=== PATIENT | male | born 2000 | race Caucasian/White ===

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

== ENCOUNTER 2023-01-03 10:43 | Outpatient (CLI) | payer BC, MEDICAID, SELFPAY ==
--- NOTE | 2023-01-03 10:57 | XR_ITS ---
WS: [id number] Cervical spine, 3 views, 01/03/2023 Clinical Data: M54.2 - Cervicalgia Comparison: None. Findings: No compression fractures are seen. The disc heights are normal. There is no prevertebral so ft tissue swelling. The odontoid is unremarkable. The soft tissues of the neck and the lung apices ar e normal. XR/XR cervical spine 3V* 11386 Impression: Negative cervical spine.
--- NOTE | 2023-01-03 10:57 | XR_ITS ---
WS: [id number] Left foot, AP and lateral views, 01/03/2023 Clinical Data: M20.62 - Acquired deformities of toe(s), unspecified, left... Comparison: None. Findings: No fractures or dislocations are seen. No bone destruction or erosion is noted. The joint spaces and soft tissues are normal. XR/XR foot LT 2V [id number] Impression: Negative left foot.
[2023-01-03 11:47] LABS: Basophils # 0.1 10^3/uL (0.0-0.1); Basophils % 0.9 %; Eosinophils # 0.5 10^3/uL (0.0-0.8); Eosinophils % 8.1 %; Hematocrit 47.6 % (42.0-52.0); Hemoglobin 16.5 g/dL (11.7-16.6); Lymphocytes # 1.5 10^3/uL (1.5-6.5); Lymphocytes % 21.8 %; Mean Corpuscular HGB Conc 34.7 g/dL (30.0-36.0); Mean Corpuscular Hemoglobin 30.2 pg (28.0-34.0); Mean Corpuscular Volume 87.2 fl (80-94); Mean Platelet Volume 8.9 fL (7.4-10.4); Monocytes # 0.7 10^3/uL (0.2-0.9); Monocytes % 10.1 %; Neutrophils % 58.8 %; Nucleated Red Blood Cells % 0 %; Platelet Count 233 10^3/cmm (130-400); Red Blood Count 5.46 10^6/uL (4.1-5.3); Red Cell Distribution Width 11.9 % (12.1-15.1); White Blood Count 6.6 10^3/uL (4.5-13.0)
[2023-01-03 11:59] LABS: Erythrocyte Sedimentation Rate 1 mm/hr (0-10)
[2023-01-03 12:17] LABS: Alanine Aminotransferase 14 U/L (0-41); Albumin Level 4.6 g/dL (3.5-5.2); Alkaline Phosphatase 70 U/L (40-130); Anion Gap 14.3 (5-19); Aspartate Amino Transferase 17 U/L (0-40); Blood Urea Nitrogen 11 mg/dL (6-20); Calcium 9.8 mg/dL (8.5-10.5); Carbon Dioxide 28 mmol/L (22-29); Chloride 101 mmol/L (98-107); Chol HDL Ratio 2.95 mg/dL (1.0-5.00); Cholesterol 171 mg/dL (0-200); Free T4 Free Thyroxine 1.31 ng/dL (0.82-1.77); Globulin 2.7 g/dL (1.3-4.6); Glomerular Filtration Rate 107.6 mL/min (90-130); Glucose 63 mg/dL (65-115); HDL Cholesterol 58 mg/dL (60-100); LDL Cholesterol Calculated 103 mg/dL (50-129); LDL HDL Ratio 1.78 RATIO (0.00-3.22); Osmolality Calculated 285 mOsm/kg (285-295); Potassium 4.3 mmol/L (3.5-5.1); Sodium 139 mmol/L (136-145); Testosterone Total 504.7 ng/dL (3-685); Thyroid Stimulating Hormone 0.57 uIU/mL (0.27-4.20); Total Bilirubin 0.4 mg/dL (0.15-1.2); Total Protein 7.3 g/dL (6.6-8.7); Triglycerides 50 mg/dL (0-150)
[2023-01-03 12:55] LABS: 25 Hydroxy Vitamin D 48 ng/mL (30-100)
== END 2023-01-03 10:44 | disposition home or self-care (01) ==
PROVIDERS: PCP Nurse Practitioner; Visit Provider Nurse Practitioner
DX: Z00.00 Encounter for general adult medical examination without abnormal findings (principal); M20.62 Acquired deformities of toe(s), unspecified, left foot; M54.2 Cervicalgia; R25.2 Cramp and spasm; R53.83 Other fatigue
CPT/HCPCS: 72040; 73620; 80053; 80061; 82306; 84403; 84439; 84443; 85025; 85651; 86140

== ENCOUNTER → 2025-01-31 15:32 | Outpatient (BNVA) | payer BC, SELFPAY | PROVIDERS: PCP Nurse Practitioner; Visit Provider Family Medicine | DX: A64 Unspecified sexually transmitted disease (principal) | CPT/HCPCS: 81000 ==

== ENCOUNTER 2025-02-19 21:21 | Emergency (ER) | payer BC, SELFPAY ==
--- OUTSIDE RECORDS SUMMARY | 2025-02-19 21:28 | XMS_ITS | Clinical Summary ---
Author Organization [facility] Address [address] [place] [address] Care Team Providers Care Retail Marketing Specialist Name Role Phone Unavailable Primary Care Provider Unavailabl e Allergies No known active allergies Medications No known medications Active Problems No known active problems Family History Medical History Relation Name Comments Osteoporosis Neg Hx Social History Tobacco Use Types Packs/Day Years Used Date Smoking Tobacco: Never Smokeless Tobacco: Never Sex and Gender Information Value Date Recorded Sex Assigned at Not on file Legal Sex Male 1:32 PM CDT Gender Identity Not on file Sexual Orientation Not on file Last Filed Vital Signs Vital Sign Reading Time Taken Comments Blood Pressure 125/80 03/28/2020 3:28 PM CDT Pulse 81 03/28/2020 3:28 PM CDT Temperature - - Respiratory Rate - - Oxygen Saturation - - Inhaled Oxygen Concentration - - Weight 74.8 kg (165 lb) 03/28/2020 3:28 PM CDT Height 179.1 cm (5' 10.5 ) 03/28/2020 3:28 PM CD T Body Mass Index 23.34 03/28/2020 3:28 PM CDT Plan of Treatment Health Maintenance Due Date Last Done Comments HPV VACCINES (1 - Male 3-dose series) 2017 DTAP/TDAP/TD VACCINES (1 - Tdap) 2021 HEPATITIS B VACCINES (1 of 3 - 19+ 3-dose series) 08/21 INFLUENZA VACCINE (#1) 2025 Insurance BCBS Member Subscriber Plan / Payer (Ef fective 2018-Present) Name:Mike Mayorga Relation to Subscriber:Child Name:GIOVANNI EDMONDS Date of :1975 (Home) Address: [address] [place] [id number] Payer ID:Not on file Type:[employer] Address: [address] [facility] [facility]
--- OUTSIDE RECORDS SUMMARY | 2025-02-19 21:28 | XMS_ITS | Clinical Summary ---
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
[2025-02-19 21:36] VITALS: BP 137/78; PULSE 100; RESP 16; TEMP 36.7; O2SAT 100; BMI 25.8
--- NOTE | 2025-02-19 23:12 | CTR_ITS ---
PROCEDURE INFORMATION: Exam: CT Head Without Contrast Exam date and time: 02/19/2025 11:38 PM Age: 24 years old Clinical indication: C/O sudden onset of lue paresthesia. No injury. TECHNIQUE: Imaging protocol: Computed tomography of the head without contrast. Radiation optimization: All CT scans at this facility use at least one of these dose optimization techniques: automated exposure control; mA and/or kV adjustment per patient size (includes targeted exams where dose is matched to clinical indication); or iterative reconstruction. COMPARISON: CT head wo con* [id number] 03/04/2018 12:06 PM RADIATION DOSE METRICS: Total DLP (mGy-cm): 1000.58 FINDINGS: Brain: Normal. No hemorrhage. Unremarkable white matter. No mass effect. Cerebral ventricles: No ventriculomegaly. Paranasal sinuses: Visualized sinuses are unremarkable. No fluid levels. Mastoid air cells: Visualized mastoid air cells are well aerated. Bones: Unremarkable. No acute fracture. Soft tissues: Unremarkable. CT/CT head wo con* [id number] IMPRESSION: No acute intracranial hemorrhage.
--- NOTE | 2025-02-19 23:12 | CTR_ITS ---
PROCEDURE INFORMATION: Exam: CT Cervical Spine Without Contrast Exam date and time: 02/19/2025 11:39 PM Age: 24 years old Clinical indication: Numbness; C/O sudden onset of lue paresthesia. No injury. TECHNIQUE: Imaging protocol: Computed tomography of the cervical spine without contrast. Radiation optimization: All CT scans at this facility use at least one of these dose optimization techniques: automated exposure control; mA and/or kV adjustment per patient size (includes targeted exams where dose is matched to clinical indication); or iterative reconstruction. COMPARISON: CR XR cervical spine 3V* [id number] 01/03/2023 11:05 AM RADIATION DOSE METRICS: Total DLP (mGy-cm): 335.57 FINDINGS: Bones: No acute fracture. Normal alignment. No significant disc bulge or herniation. No severe spinal canal stenosis. No significant neural foraminal narrowing. Lungs: Lung apices are normal. Soft tissues: Unremarkable. CT/CT cervical spin wo con* [id number] IMPRESSION: No acute cervical spine fracture.
--- NOTE | 2025-02-19 23:13 | ECG_ITS ---
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 Measurements Intervals [place] Rate: 77 P: 60 OR: 136 QRS: 102 QRSD: 114 T: 66 QT: 372 QTc: 423 Interpretive Statements SINUS RHYTHM MODERATE INTRAVENTRICULAR CONDUCTION DELAY [110+ ms QRS DURATION] ST ELEVATION, PROBABLY EARLY REPOLARIZATION [ST ELEVATION WITH NORMALLY INFLECTED T-WAVE] Compared to ECG 02/16/2020 19:28:15 Sinus arrhythmia no longer present Electronically Signed On 02-20-2025 22:08:20 CDT by Julián Woodard M.D. [email or web address]
[2025-02-20 00:05] LABS: Hematocrit 47.1 % (37-53); Hemoglobin 16.40 g/dL (11.27-16.99); Mean Corpuscular HGB Conc 34.8 g/dL (30-55); Mean Corpuscular Hemoglobin 30.4 pg (27-33); Mean Corpuscular Volume 87.4 fl (82-101); Nucleated Red Blood Cells % 0 %; Platelet Count 269 10^3/cmm (157-399); Red Blood Count 5.39 10^6/uL (3.85-5.65); White Blood Count 10.95 10^3/uL (3.29-11.43)
[2025-02-20 00:07] LABS: INR 0.87 (0.8-1.2); Prothrombin Time 12.50 SECONDS (12.1-14.9)
[2025-02-20 00:09] LABS: Partial Thromboplastin Time 26.3 SECONDS (23.9-36.7)
[2025-02-20 00:16] LABS: Alanine Aminotransferase 17 U/L (0-41); Albumin Level 4.1 g/dL (3.5-5.2); Alkaline Phosphatase 70 U/L (40-130); Anion Gap 15.6 (5-19); Aspartate Amino Transferase 18 U/L (0-40); Blood Urea Nitrogen 10 mg/dL (6-20); Calcium 9.4 mg/dL (8.5-10.5); Carbon Dioxide 23 mmol/L (22-29); Chloride 102 mmol/L (98-107); Creatinine Clr Calc Pharmacy 125.3075; Globulin 2.9 g/dL (1.3-4.6); Glucose 96 mg/dL (65-115); Osmolality Calculated 283 mOsm/kg (285-295); Potassium 3.6 mmol/L (3.5-5.1); Sodium 137 mmol/L (136-145); Total Protein 7.0 g/dL (6.6-8.7)
--- NOTE | 2025-02-20 01:17 | W.ED.EXTPRO ---
HPI - Extremity Problem General: Chief complaint: Extremity Problem,Nontraumatic Stated complaint: Left Hand Tingeling\Dizzy Time Seen by Provider: 02/19/25 23:12 History of Present Illness: Patient is a 24-year-old male who presents with left hand numbness and tingling that began a couple of hours prior to arrival. He reports the numbness primarily affects his palm with sensations that travel around. The symptoms have been intermittent, with the numbness and tingling occasionally extending up his arm before subsiding and then returning to his hand. Patient denies any associated pain, trauma, or injury to the affected hand. [place] but denies any specific injury or overuse of the hand. He denies hanging his hand over the boat or falling asleep on it. Patient reports some subjective weakness in the left hand initially, though this appears to have improved. He denies any headache, vision changes, difficulty with speech, or leg symptoms. Patient states he became nervous when the symptoms began. No prior similar episodes reported. Related Data Home Medications ?Medication ?Instructions ?Recorded ?Confirmed testosterone enanthate 100 mg/0.5 300 mg SUBCUT .3xw 04/03/24 01/31/25 mL subcutaneous auto-injector Previous Rx's ?Medication ?Instructions ?Recorded nystatin-triamcinolone 100,000 1 applic topical QID #30 grams 01/31/25 unit/g-0.1 % topical cream methylprednisolone 4 mg tablets in See Rx Instructions PO .COMPLEX 02/20/25 a dose pack (Medrol (Emmanuel)) #21 ea Allergies Allergy/AdvReac Type Severity Reaction Status Date / Time No Known Allergies Allergy Verified 01/31/25 15:22 [facility] ED PFSH: Social History Smoking and tobacco/nicotine status: never used tobacco/nicotine Alcohol intake: never Substance/Drug Use: never Adopted: No Physical Exam Const: COMMON NORMALS: no acute distress, patient oriented x3 and alert GENERAL APPEARANCE: cooperative; not ill appearing and not frail appearing HENMT: COMMON NORMALS: normocephalic, atraumatic and Normal external nose present HEAD & SCALP: normocephalic and atraumatic FACE & SINUS: normal facial exam and face symmetric NOSE: Normal external nose present Eye: COMMON NORMALS: Equal, round and reactive pupils present and EOMs intact bilaterally PUPIL: Yes Equal, round and reactive pupils present Neck/C-Spine: COMMON NORMALS: full ROM and no meningeal signs GENERAL: Yes trachea midline CERVICAL SPINE: No Cervical spine tenderness Chest: CHEST: Yes Symmetrical chest wall rise Resp: COMMON NORMALS: normal respiratory effort, No retractions, No use of accessory muscles and clear to auscultation bilaterally AUSCULTATION: clear to auscultation bilaterally Cardio: COMMON NORMALS: regular rate and regular rhythm RATE: regular rate RHYTHM: regular rhythm GI: COMMON NORMALS: Normal to inspection, nondistended, normoactive bowel sounds present Extremity: COMMON NORMALS: no pedal edema Neuro: CYNDI COMA SCALE: document GCS findings [place] coma scale eye opening: Spontaneous [place] coma scale verbal response: Orientated [place] coma scale motor response: Obey commands [place] coma scale total score: 15 COMMON NORMALS: patient oriented x3 SENSORIUM/ORIENTATION: Yes alert MENINGEAL SIGNS: Yes no meningeal signs CRANIAL NERVES: Yes CN normal except as noted COORDINATION/BALANCE: ncqdtb-so-[id number] test normal and ktrm-xi-[id number] test normal SPEECH: speech normal GAIT: Yes Normal gait present SENSORY EXAM: Yes extremities (intact) MOTOR EXAM: Pronator motor function not present and Normal motor muscle tone present throughout COORDINATION: ciactv-qo-ayfa test normal and pnxz-tn-ggem test normal Psych: COMMON NORMALS: speech normal SPEECH: Yes normal speech Skin: COMMON NORMALS: no rashes or lesions noted GENERAL SKIN EXAM: no rashes or lesions noted Course Vital Signs: Vital signs: Vital Signs Temperature 98.1 F 02/19/25 21:36 Pulse Rate 100 02/19/25 21:36 Respiratory Rate 16 02/19/25 21:36 Blood Pressure 137/78 02/19/25 21:36 Pulse Oximetry 100 02/19/25 21:36 Oxygen Delivery Me thod Room Air 02/19/25 21:36 MDM - Extremity (Nontraumatic) Medical Decision Making Head and cervical spine CTs are negative. No significant disc bulges. No neck tenderness. Laboratories normal. He does have a positive modified Phalen's test on that side indicative of carpal tunnel type syndrome. He is given IM steroids and thiamine here. He will be placed on a steroid taper, and allowed to follow-up as an outpatient. He shows no clinical signs of left upper extremity DVT, acute stroke otherwise, significant cervical radiculopathy, arterial occlusion, which are all in the differential. Lab Data 02/19/25 23:40 02/19/25 23:40 Radiology Impressions Cervical Spine CT 02/19/25 23:12 IMPRESSION: No acute cervical spine fracture. Head CT 02/19/25 23:12 IMPRESSION: No acute intracranial hemorrhage. Laboratory Results WBC 10.95 10^3/uL (3.29-11.43) 02/19/25 23:40 RBC 5.39 10^6/uL (3.85-5.65) 02/19/25 23:40 Hgb 16.40 g/dL (11.27-16.99) 02/19/25 23:40 Hct 47.1 % (37-53) 02/19/25 23:40 MCV 87.4 fl (82-101) 02/19/25 23:40 MCH 30.4 pg (27-33) 02/19/25 23:40 MCHC 34.8 g/dL (30-55) 02/19/25 23:40 RDW 12.5 % (12.1-15.1) 02/19/25 23:40 Plt Count 269 10^3/cmm (157-399) 02/19/25 23:40 MPV 8.9 fL (7.4-10.4) 02/19/25 23:40 Neut % (Auto) 74.3 % 02/19/25 23:40 Lymph % (Auto) 13.5 % 02/19/25 23:40 [place] % (Auto) 8.4 % 02/19/25 23:40 Eos % (Auto) 2.7 % 02/19/25 23:40 Baso % (Auto) 0.6 % 02/19/25 23:40 Neut # (Auto) 8.13 10^3/uL (1.8-7.7) H 02/19/25 23:40 Lymph # (Auto) 1.5 10^3/uL (0.8-4.8) 02/19/25 23:40 [place] # (Auto) 0.9 10^3/uL (0.2-0.9) 02/19/25 23:40 Eos # (Auto) 0.3 10^3/uL (0.0-0.8) 02/19/25 23:40 Baso # (Auto) 0.1 10^3/uL (0.0-0.1) 02/19/25 23:40 Nucleated RBC % (auto) 0 % 02/19/25 23:40 Nucleated RBCs # 0.0 /100WBC 02/19/25 23:40 PT 12.50 SECONDS (12.1-14.9) 02/19/25 23:40 INR 0.87 (0.8-1.2) 02/19/25 23:40 APTT 26.3 SECONDS (23.9-36.7) 02/19/25 23:40 Sodium 137 mmol/L (136-145) 02/19/25 23:40 Potassium 3.6 mmol/L (3.5-5.1) 02/19/25 23:40 Chloride 102 mmol/L (98-107) 02/19/25 23:40 Carbon Dioxide 23 mmol/L (22-29) 02/19/25 23:40 Anion Gap 15.6 (5-19) 02/19/25 23:40 BUN 10 mg/dL (6-20) 02/19/25 23:40 Creatinine 1.0 mg/dL (0.7-1.2) 02/19/25 23:40 GFR Calculation 93.4 mL/min (90-130) 02/19/25 23:40 Glucose 96 mg/dL (65-115) 02/19/25 23:40 Calculated Osmolality 283 mOsm/kg (285-295) L 02/19/25 23:40 Calcium 9.4 mg/dL (8.5-10.5) 02/19/25 23:40 Total Bilirubin 0.4 mg/dL (0.15-1.2) 02/19/25 23:40 AST 18 U/L (0-40) 02/19/25 23:40 ALT 17 U/L (0-41) 02/19/25 23:40 Alkaline Phosphatase 70 U/L (40-130) 02/19/25 23:40 Total Protein 7.0 g/dL (6.6-8.7) 02/19/25 23:40 Albumin 4.1 g/dL (3.5-5.2) 02/19/25 23:40 Globulin 2.9 g/dL (1.3-4.6) 02/19/25 23:40 All radiology interpretation(s) finalized by discharge Discharge Plan Discharge Patient Disposition: Home Clinical Impression: Paresthesias in right hand Condition: Stable Prescriptions: New methylprednisolone [Medrol (Emmanuel)] 4 mg tablets,dose pack See Rx Instructions .ROUTE .COMPLEX Qty: 21 0RF Rx Instructions: orally per package directions No Action testosterone enanthate 100 mg/0.5 mL auto-injector 300 mg SUBCUT .3xw Patient Comments: friday, friday, friday nystatin-triamcinolone 100,000-0.1 unit/g-% cream 1 applic topical QID Qty: 30 0RF Discharge Orders: Discharge ED (Routine); Ordered 02/20/25 Ordered By: Altaf Barreto Patient Instructions: Paresthesia (ED), Opioid Safety, Pain Management, Patient Portal & Tom Instructions Activity Restrictions/Additional Instructions: Medication as directed. Ice may help initially. Return for worsening numbness or tingling despite treatment, development of weakness, particularly in other parts of the body, trouble with speech, vision, fever, walking, any other concerning symptoms. Call your doctor on Friday for a follow-up appointment. Print Language: Belarusian Coding Level of Care Code ED Emergency Department Nurse for Lazara Lee
[2025-02-20] MEDS: thiamine 100 mg/mL 2mL SDV IM (01:48)
[2025-02-20] MEDS: methylPREDNISolone sod succ 125 mg/2 mL INJ IM (01:48)
== END 2025-02-20 01:53 | disposition home or self-care (01) ==
PROVIDERS: Emergency Provider Emergency Medicine
DX: R20.2 Paresthesia of skin (principal); R94.31 Abnormal electrocardiogram [ECG] [EKG]
CPT/HCPCS: 36415; 70450; 72125; 80053; 85025; 85610; 85730; 93005; 96372; 99284; J2919; J3411

== ENCOUNTER 2025-04-26 13:53 | Emergency (ER) | payer BC, SELFPAY ==
--- NOTE | 2025-04-26 14:07 | ED_ITS ---
HPI - Nausea/Vomiting/Diarrhea 2 General: Chief complaint: Nausea/Vomiting/Diarrhea Stated complaint: n/v/d/f Time Seen by Provider: 04/26/25 14:04 History of Present Illness: 24-year-old man with no significant past medical history resents emergency room with fevers, nausea vomiting and diarrhea and a cough. Said this started yesterday. He has had malaise. He is slightly diaphoretic. No focal abdominal pain. He says he has diffuse cramping. Extensive diarrhea. Related Data Home Medications ?Medication ?Instructions ?Recorded ?Confirmed cider 2 tab PO DAILY 04/26/2510/15 naevvrt-Od-lbsiuzvilpdbdtrs-tea 500 mg-100 mcg-300 mg-60 mg tab (Apple Cider Vinegar Plus) eqgklqutxz-BN-rayboegiqvyio 12.5 30 ml PO QID PRN Cold Symptoms 04/26/25 04/26/25 mg-30 mg-1,000 mg/30 mL oral liquid ibuprofen 200 mg tablet (Advil) 400 mg PO Q6H PRN Feve r Or Pain 04/26/25 04/26/25 Previous Rx's ?Medication ?Instructions ?Recorded ondansetron 8 mg disintegrating 8 mg PO Q6H #14 tabs 1 06/26/24 tablet Allergies Allergy/AdvReac Type Severity Reaction Status Date / Time No Known Allergies Allergy Verified 04/26/25 14:10 Review of Systems 2 Narrative: Constitutional symptoms: Negative except as documented in HPI. Skin symptoms: Negative except as documented in HPI. Eye symptoms: Negative except as documented in HPI. ENMT symptoms: Negative except as documented in HPI. Respiratory symptoms: Negative except as documented in HPI. Cardiovascular symptoms: Negative except as documented in HPI. Gastrointestinal symptoms: Negative except as documented in HPI. Genitourinary symptoms: Negative except as documented in HPI. Musculoskeletal symptoms: Negative except as documented in HPI. Neurologic symptoms: Negative except as documented in HPI. Psychiatric symptoms: Negative except as documented in HPI. Endocrine symptoms: Negative except as documented in HPI. PFSH ED 2 PFSH: Social History Smoking and tobacco/nicotine status: never used tobacco/nicotine Alcohol intake: never Substance/Drug Use: never Adopted: No Physical Exam 2 Narrative: EXAM NARRATIVE: General: Alert, no acute distress. Skin: Warm, slightly diaphoretic. Head: Normocephalic, atraumatic. Neck: Supple, trachea midline. Eye: Extraocular movements are intact. Ears, nose, mouth and throat: Tacky oral mucosa Cardiovascular: Regular, Normal peripheral perfusion. Respiratory: Lungs are clear to auscultation, respirations are non-labored, breath sounds are equal, Symmetrical chest wall expansion. Gastrointestinal: Soft, Nontender, Non distended Musculoskeletal: Normal ROM, no deformity. Neurological: Alert and oriented, No focal neurological deficit observed. Psychiatric: Cooperative, appropriate mood & affect. Course 2 Vital Signs: Vital signs: Vital Signs Temperature 99.7 F H 04/26/25 14:08 Pulse Rate 89 04/26/25 15:12 Respiratory Rate 16 04/26/25 15:12 Blood Pressure 126/68 04/26/25 15:12 Pulse Oximetry 97 04/26/25 15:12 Oxygen Delivery Me thod Room Air 04/26/25 15:12 MDM - Nausea/Vomiting/Diarrhea Medical Decision Making Medical decision making: Patient's reason for coming to the emergency room: Nausea, vomiting, diarrhea, fever and cough Social determinants: Patient is employed. I reviewed the patient's medical record. Patient takes no regular medications I reviewed the patient's current home meds Patient was last seen in the ER in January for hand paresthesia Alternate historians: None Differential diagnosis for this patient with nausea and vomiting including but not limited to and based on the above HPI, review of systems and physical exam: Urinary tract infection. Appendicitis. Cholecystitis. Colitis. small bowel obstruction. crohn's flare. pancreatitis. gastritis. peptic ulcer. cyclic vomiting. Viral illness. Influenza. COVID. Orders placed to evaluate differential diagnosis based on the above differential, HPI and physical exam Lab Review: Laboratory results were reviewed and interpreted by myself the emergency room physician. Mild leukocytosis with a white count of 13,000. No renal failure. Mild polycythemia with a hemoglobin of 17. Urinalysis is negative for infection but is quite concentrated which would indicate dehydration. Lipase is negative. Liver enzymes are normal. Assessment of risk: Level of risk: Low Hospitalization considerations: Patient has no renal failure or other reasons to admit at this time. Nausea vomiting diarrhea and fever with no focal abdominal pain. I do not believe imaging would be of use at this time. Reexamination: Patient remained stable. No increased work of breathing. No altered mental status. No focal motor deficits. Patient says he feels somewhat better but not well Assessment and plan: Gastroenteritis Dehydration ?2 L normal saline bolus. IV Zofran. IV Toradol. - Discharged home - Discussed plan with patient. Answered any questions. - Evaluation and treatment of this problem were appropriate in the emergency setting. Lab Data 04/26/25 14:07 04/26/25 14:07 Laboratory Results WBC 13.44 10^3/uL (3.29-11.43) H 04/26/25 14:07 RBC 5.62 10^6/uL (3.85-5.65) 04/26/25 14:07 Hgb 17.10 g/dL (11.27-16.99) H 04/26/25 14:07 Hct 49.5 % (37-53) 04/26/25 14:07 MCV 88.1 fl (82-101) 04/26/25 14:07 MCH 30.4 pg (27-33) 04/26/25 14:07 MCHC 34.5 g/dL (30-55) 04/26/25 14:07 RDW 12.4 % (12.1-15.1) 04/26/25 14:07 Plt Count 247 10^3/cmm (157-399) 04/26/25 14:07 MPV 8.8 fL (7.4-10.4) 04/26/25 14:07 Neut % (Auto) 65.0 % 04/26/25 14:07 Lymph % (Auto) 5.7 % 04/26/25 14:07 Blaine % (Auto) 4.8 % 04/26/25 14:07 Eos % (Auto) 23.8 % 04/26/25 14:07 Baso % (Auto) 0.4 % 04/26/25 14:07 Neut # (Auto) 8.74 10^3/uL (1.8-7.7) H 04/26/25 14:07 Lymph # (Auto) 0.8 10^3/uL (0.8-4.8) 04/26/25 14:07 Blaine # (Auto) 0.7 10^3/uL (0.2-0.9) 04/26/25 14:07 Eos # (Auto) 3.2 10^3/uL (0.0-0.8) H 04/26/25 14:07 Baso # (Auto) 0.1 10^3/uL (0.0-0.1) 04/26/25 14:07 Nucleated RBC % (auto) 0 % 04/26/25 14:07 Nucleated RBCs # 0.0 /100WBC 04/26/25 14:07 Sodium 135 mmol/L (136-145) L 04/26/25 14:07 Potassium 3.7 mmol/L (3.5-5.1) 04/26/25 14:07 Chloride 101 mmol/L (98-107) 04/26/25 14:07 Carbon Dioxide 22 mmol/L (22-29) 04/26/25 14:07 Anion Gap 15.7 (5-19) 04/26/25 14:07 BUN 10 mg/dL (6-20) 04/26/25 14:07 Creatinine 1.1 mg/dL (0.7-1.2) 04/26/25 14:07 GFR Calculation 83.7 mL/min (90-130) L 04/26/25 14:07 Glucose 106 mg/dL (65-115) 04/26/25 14:07 Calculated Osmolality 279 mOsm/kg (285-295) L 04/26/25 14:07 Lactic Acid 0.7 mmol/L (0.5-2.2) 04/26/25 14:07 Calcium 9.0 mg/dL (8.5-10.5) 04/26/25 14:07 Total Bilirubin 0.5 mg/dL (0.15-1.2) 04/26/25 14:07 AST 23 U/L (0-40) 04/26/25 14:07 ALT 18 U/L (0-41) 04/26/25 14:07 Alkaline Phosphatase 83 U/L (40-130) 04/26/25 14:07 C-Reactive Protein 69.9 mg/L (0.0-4.9) H 04/26/25 14:07 Total Protein 7.3 g/dL (6.6-8.7) 04/26/25 14:07 Albumin 4.1 g/dL (3.5-5.2) 04/26/25 14:07 Globulin 3.2 g/dL (1.3-4.6) 04/26/25 14:07 Lipase 15 U/L (13-60) 04/26/25 14:07 Urine Color Dark yellow (Yellow) A 04/26/25 14: Urine Appearance Clear (CLEAR) 04/26/25 14:25 Urine pH 6.0 (5-7) 04/26/25 14:25 Ur Specific [place] 1.033 (1.005-1.030) H 04/26/25 14:25 Urine Protein 1+ (Negative) A 04/26/25 14:25 Urine Glucose (UA) Negative (Normal) 04/26/25 14: Urine Ketones 1+ (Negative) H 04/26/25 14: Urine Blood Negative (Negative) 04/26/25 14:25 Urine Nitrate Negative (Negative) 04/26/25 14:25 Urine Bilirubin Negative (Negative) 04/26/25 14: Urine Urobilinogen 1.0 mg/dL (Negative) 04/26/25 14:25 Ur Leukocyte Esterase Negative (Negative) 04/26/25 14:25 Urine RBC 0-2 /hpf (0-2) 04/26/25 14:25 Urine WBC 6-10 /hpf (0-5) 04/26/25 14:25 Ur Squamous Epith Cells 6-10 /hpf (0-5) 04/26/25 14:25 Amorphous Sediment Not Reportable 04/26/25 14:25 Urine Bacteria None seen /hpf (NONE) 04/26/25 14:25 Hyaline Casts 2.46 /lpf 04/26/25 14:25 Influenza A (PCR) Negative (Negative) 04/26/25 14:30 Influenza Type B (PCR) Negative (Negative) 04/26/25 14:30 RSV (PCR) Negative (Negative) 04/26/25 14:30 SARS-CoV-2 (PCR) Negative (Negative) 04/26/25 14:30 No radiology studies performed this visit Discharge Plan Discharge Patient Disposition: Home Clinical Impression: Gastroenteritis, Dehydration Condition: Stable Prescriptions: New ondansetron 8 mg tablet,disintegrating 8 mg PO Q6H Qty: 14 0RF Rx Instructions: Take 1/2-1 tab every 6 hours as needed for nausea and vomiting No Action ibuprofen [Advil] 200 mg Tablet 400 mg PO Q6H PRN (Reason: Fever Or Pain) Night Time Cold-Flu 12.5-30-1,000 mg/30 mL Liquid 30 ml PO QID PRN (Reason: Cold Symptoms) Apple Cider Vinegar Plus [phone] po-ynx-vy-mg Tablet 2 tab PO DAILY Discharge Orders: Discharge ED (Routine); Ordered 04/26/25 Ordered By: Priya Monk Discharge Diet: Advance as tolerated Discharge Activity: Increase activity as tolerated Patient Instructions: Sanders Diet - Adult, Opioid Safety, Pain Management, Patient Portal & Tom Instructions Activity Restrictions/Additional Instructions: Thank you for choosing [facility] for your healthcare needs today. You have been screened and evaluated and felt safe for discharge. Health conditions do change or evolve sometimes and as such it is important that you follow up with your Primary Doctor to be re checked, 3-5 days is a general good time frame for follow up. You are always welcome to return to the ED for re assessment if your symptoms are worsening or you have new concerns Print Language: Namibian Coding Level of Care Code ED Delivery Driver/Supervisor for Lazara Lee
[2025-04-26 14:08] VITALS: BP 132/74; PULSE 98; TEMP 37.6; O2SAT 95
[2025-04-26 14:14] LABS: Hematocrit 49.5 % (37-53); Hemoglobin 17.10 g/dL (11.27-16.99); Mean Corpuscular HGB Conc 34.5 g/dL (30-55); Mean Corpuscular Hemoglobin 30.4 pg (27-33); Mean Corpuscular Volume 88.1 fl (82-101); Nucleated Red Blood Cells % 0 %; Platelet Count 247 10^3/cmm (157-399); Red Blood Count 5.62 10^6/uL (3.85-5.65); White Blood Count 13.44 10^3/uL (3.29-11.43)
--- OUTSIDE RECORDS SUMMARY | 2025-04-26 14:17 | XMS_ITS | Clinical Summary ---
Author Organization [facility] Address [address] [facility] Attn: [place] [address] Care Team Providers Care Latin Dance Instructor Name Role Phone Unavailable Primary Care Provider Unavailabl e Allergies No known active allergies Family History Medical History Relation Name Comments Osteoporosis Neg Hx Social History Tobacco Use Types Packs/Day Years Used Date Smoking Tobacco: Never Smokeless Tobacco: Never Sex and Gender Information Value Date Recorded Sex Assigned at Not on file Legal Sex Male 10:[address]PERVISOR Gender Identity Not on file Sexual Orientation [...]
--- OUTSIDE RECORDS SUMMARY | 2025-04-26 14:17 | XMS_ITS | Clinical Summary ---
Author Organization [facility] Address [address] [place] [address] Care Team Providers Care Measuring Clerk Name Role Phone Unavailable Primary Care Provider [...] Name:GIOVANNI EDMONDS Date of :1973 (Home) Address: [address] [place] [id number] Payer ID:Not on file Type:Blue Cross Address: [address] [employer] [facility]
[2025-04-26 14:43] LABS: Alanine Aminotransferase 18 U/L (0-41); Albumin Level 4.1 g/dL (3.5-5.2); Alkaline Phosphatase 83 U/L (40-130); Anion Gap 15.7 (5-19); Aspartate Amino Transferase 23 U/L (0-40); Blood Urea Nitrogen 10 mg/dL (6-20); Calcium 9.0 mg/dL (8.5-10.5); Carbon Dioxide 22 mmol/L (22-29); Chloride 101 mmol/L (98-107); Creatinine Clr Calc Pharmacy 111.2126; Globulin 3.2 g/dL (1.3-4.6); Glucose 106 mg/dL (65-115); Lipase 15 U/L (13-60); Osmolality Calculated 279 mOsm/kg (285-295); Potassium 3.7 mmol/L (3.5-5.1); Sodium 135 mmol/L (136-145); Total Protein 7.3 g/dL (6.6-8.7)
[2025-04-26 14:44] LABS: Lactic Sepsis W/Reflex 0.7 mmol/L (0.5-2.2)
[2025-04-26] MEDS: ondansetron 2 mg/ML SDV 2 mL 8 MG IVP (14:45)
[2025-04-26 14:53] LABS: Glucose Urine UA Negative (Normal); Nitrate Urine Negative (Negative)
[2025-04-26 15:00] LABS: Specific Gravity, Urine 1.033 (1.005-1.030)
[2025-04-26 15:12] VITALS: BP 126/68; PULSE 89; RESP 16; O2SAT 97
[2025-04-26 15:27] LABS: Respiratory Syncytial Virus Ce NEGATIVE (Negative); SARS-CoV-2 PCR NEGATIVE (Negative)
[2025-04-26 16:00] VITALS: BP 127/71; PULSE 97; RESP 16; O2SAT 98
[2025-04-26 16:26] VITALS: BP 127/73; PULSE 90; RESP 16; O2SAT 95
== END 2025-04-26 16:32 | disposition home or self-care (01) ==
PROVIDERS: Emergency Provider Emergency Medicine
DX: K52.9 Noninfective gastroenteritis and colitis, unspecified (principal); E86.0 Dehydration; Z11.52 Encounter for screening for COVID-19
CPT/HCPCS: 36415; 80053; 81001; 83605; 83690; 85025; 86140; 87637; 96361; 96374; 96375; 99284; J1885; J2405; J7030

== ENCOUNTER 2025-06-17 10:43 | Emergency (ER) | payer BC, SELFPAY ==
--- NOTE | 2025-06-17 10:44 | XRR_ITS ---
PROCEDURE INFORMATION: Exam: XR Left Ankle Exam date and time: 06/17/2025 11:21 AM Age: 24 years old Clinical indication: Pain and injury or trauma; Fall; Other: Stepped off tractor and felt a pop; Ankle; Left TECHNIQUE: Imaging protocol: Radiologic exam of the left ankle. Views: 3 or more views. COMPARISON: CR XR ankle LT min 3V* [id number] 04/15/2020 11:46 AM FINDINGS: Bones/joints: Normal. Alignment at the mortise is normal. Calcification of the interosseous ligament. Prominent ossicle adjacent to the medial malleolus. Soft tissues: Lateral soft tissue swelling. Rounded calcification in Kager's triangle. XR/XR ankle LT min 3V* [id number] IMPRESSION: Lateral soft tissue swelling. No acute fracture lucency.
--- OUTSIDE RECORDS SUMMARY | 2025-06-17 10:48 | XMS_ITS | Clinical Summary ---
Author Organization [facility] Address [address] [place] [address] Care Team Providers Care Window Shade Ring Sewer Name Role Phone Unavailable Primary Care Provider [...] Name:GIOVANNI EDMONDS Date of :1973 (Home) Address: [address] [place] [id number] Payer ID:Not on file Type:Blue Cross Address: [address] [employer] [facility]
--- OUTSIDE RECORDS SUMMARY | 2025-06-17 10:48 | XMS_ITS | Clinical Summary ---
Author Organization [employer] Address [address] [facility] Attn: [place] [address] Care Team Providers Care Dressmaking Teacher Name Role Phone Unavailable Primary Care Provider Unavailabl e Allergies No known active allergies Medications No known medications Encounters Date Type Department Care Team Description 04/28/2025 8:22 PM [facility] - 04/28/2025 10:19 PM [facility] Emergency [facility] Emergency Medicine [address] [place] [id number] Kadeem Duffy MD Gastroenteritis (Primary Dx) Discharge Disposition: Home or Self Care 04/28/2025 Travel from Last 3 Months Family History Medical History Relation Name Comments Osteoporosis Neg Hx Social History Tobacco Use Types Packs/Day Years Used Date Smoking Tobacco: Every Day Cigarettes Smokeless Tobacco: Never Tobacco Cessation:Ready to Q uit: Not Asked; Counseling Given: Not Answered Alcohol Use Standard Drinks/Week Comments Not Currently 0 (1 standard drink = 0.6 oz pur e alcohol) Food Insecurity Answer Date Recorded Do you find you are eating l ess than you should because you can t pay for food? No 04/28/2025 Transportation Needs Answer Date Record ed Have you gone without health care because you didn t have a way to get there? Or worry about transportation for future doctor visits, greens picker medication, etc.? No 2024 Housing Stability Answer Date Recorded Do you worry you won t have a steady place to sleep or struggle to pay rent or mortgage? No 04/28/2025 Utility Needs Answer Date Recorded Do you have difficulty payin g for utility costs (electric, water or gas bills)? No 04/28/2025 Medication Needs Answer Date Recorded Have you skipped taking medi cation due to cost or worry you can t afford new medications? No 04/28/2025 Feeling Safe Answer Date Recorded Are you in a relationship wi th someone who hurts you emotionally and/or physically? No 04/28/2025 Sex and Gender Information Value Date Recorded Sex Assigned at Not on file Legal Sex Male 10:17 PM [facility] Gender Identity Not on file Sexual Orientation Not on file Last Filed Vital Signs Vital Sign Reading Time Taken Comments Blood Pressure 127/82 04/28/2025 10:15 PM [facility] Pulse 73 04/28/2025 10:15 PM [facility] Temperature 36.5 C (97.7 F) 04/28/2025 8:31 PM [facility] Respiratory Rate 14 04/28/2025 10:15 PM [facility] Oxygen Saturation 99% 04/28/2025 10:15 PM [facility] Inhaled Oxygen Concentration - - Weight 77.6 kg (171 lb) 04/28/2025 8:31 PM [facility] Height 177.8 cm (5' 10 ) 04/28/2025 8:31 PM [facility] Body Mass Index 24.54 04/28/2025 8:31 PM [facility] Plan of Treatment Health Maintenance Due Date Last Done Comments HEPATITIS B VACCINES (3 of 3 - 3-dose series) 05/24/2003 03/29/2003, 2002 HPV VACCINES (1 - Male 3-dose series) 2017 DTAP/TDAP/TD VACCINES (3 - Tdap) 2021 03/29/20, 2002 INFLUENZA VACCINE (#1) 2025 Procedures Procedure Name Priority Date/Time Associated Diagnosis Comments URINALYSIS MICROSCOPY ONLY Stat 04/28/2025 9:20 PM [facility] URINALYSIS W/REFLEX MICROSCOPIC Stat 04/28/2025 9:20 PM [facility] COMPREHENSIVE METABOLIC PANEL Stat 04/28/2025 8:45 PM [facility] CBC WITH DIFFERENTIAL Stat 04/28/2025 8:45 PM [facility] from Last 3 Months Results * URINALYSIS MICROSCOPY ONLY (04/28/2025 9:20 PM [facility]) WBC UA 0-2 0 - 2 /hpf 04/28/2025 9:33 PM [facility] RBC UA 0-2 0 - 2 /hpf 04/28/2025 9:33 PM [facility] BACTERIA UA Negative Negative /hpf 04/28/2025 9:33 PM [facility] EPITHELIAL CELLS, URINE 0-5 0 - 5 /hpf 04/28/2025 9:33 PM [facility] Urine URINE SPECIMEN OBTAINED BY CLEAN CATCH PROCEDURE / Unknown Collection / Unknown 04/28/2025 9:20 PM [facility] 04/28/2025 9:26 PM [facility] us Kadeem Duffy MD URINE ORDERABLES Final R esult [facility] CLIA # [id number] [address] [place] [id number] * (ABNORMAL) URINALYSIS WITH REFLEX MICROSCOPIC (04/28/2025 9:20 PM [facility]) COLOR UA Yellow Pale to Dark Yellow 04/28/2025 9:33 PM [facility] CLARITY UA Clear Clear 04/28/2025 9:33 PM [facility] SPECIFIC GRAVITY UA 1.015 1.003 - 1.035 04/28/2025 9:33 PM [facility] PH UA 7.0 5.0 - 8.0 04/28/2025 9:33 PM [facility] LEUKOCYTE ESTERASE UA Negative Negative 04/28/2025 9:33 PM [facility] NITRITE UA Negative Negative 04/28/2025 9:33 PM [facility] PROTEIN UA 2+(A) Negative 04/28/2025 9:33 PM [facility] GLUCOSE UA Negative Negative 04/28/2025 9:33 PM [facility] KETONES UA 1+(A) Negative 04/28/2025 9:33 PM [facility] UROBILINOGEN UA 0.2 <2.0 mg/dL 9:33 PM [facility] BILIRUBIN UA 1+(A) Negative 04/28/2025 9:33 PM [facility] BLOOD UA Trace(A) Negative 04/28/2025 9:33 PM [facility] Urine URINE SPECIMEN OBTAINED BY CLEAN CATCH PROCEDURE / Unknown Collection / Unknown 04/28/2025 9:20 PM [facility] 04/28/2025 9:26 PM [facility] us Kadeem Duffy MD URINE ORDERABLES Final R esult [facility] CLIA # [id number] [address] [place] [address] * (ABNORMAL) CBC WITH DIFFERENTIAL (04/28/2025 8:45 PM [facility]) WBC 8.7 4.2 - 9.1 K/uL 04/28/2025 8:57 PM [facility] RBC 6.34(H) 4.63 - 6.08 M/uL 04/28/2025 8:57 PM [facility] HEMOGLOBIN 19.4(H) 13.7 - 17.5 g/dL 04/28/2025 8:57 PM [facility] HEMATOCRIT 52.2(H) 40.1 - 51.0 % 04/28/2025 8:57 PM [facility] MCV 82.3 79.0 - 92.2 fL 04/28/2025 8:57 PM [facility] MCH 30.6 25.7 - 32.2 pg 04/28/2025 8:57 PM [facility] MCHC 37.2(H) 32.3 - 36.5 g/dL 04/28/2025 8:57 PM [facility] RDW 12.4 11.0 - 14.5 % 04/28/2025 8:57 PM [facility] RDW-STDEV 37.2 36.9 - 56.9 fL 04/28/2025 8:57 PM [facility] PLATELETS 268 130 - 400 K/uL 04/28/2025 8:57 PM [facility] MPV 8.8(L) 10.0 - 14.8 fL 04/28/2025 8:57 PM [facility] NEUTROPHILS 55 34 - 68 % 04/28/2025 8:57 PM [facility] LYMPHOCYTES 13(L) 22 - 53 % 04/28/2025 8:57 PM [facility] MONOCYTES 13(H) 5 - 12 % 04/28/2025 8:57 PM [facility] EOSINOPHILS 18(H) 1 - 7 % 04/28/2025 8:57 PM [facility] BASOPHILS 1 0 - 1 % 04/28/2025 8:57 PM [facility] IMMATURE GRANULOCYTES 1 % 04/28/2025 8:57 PM [facility] NEUTROPHIL ABSOLUTE 4.75 1.78 - 5.38 K/uL 04/28/2025 8:57 PM [facility] LYMPHOCYTE ABSOLUTE 1.12(L) 1.20 - 3.40 K/uL 04/28/2025 8:57 PM [facility] MONOCYTE ABSOLUTE 1.12(H) 0.30 - 0.82 K/uL 04/28/2025 8:57 PM [facility] EOSINOPHIL ABSOLUTE 1.57(H) 0.04 - 0.54 K/uL 04/28/2025 8:57 PM [facility] BASOPHILS ABSOLUTE 0.08 0.01 - 0.08 K/uL 04/28/2025 8:57 PM [facility] IMMATURE GRANULOCYTES ABSOLUTE 0.04 K/uL 04/28/2025 8:57 PM [facility] Blood BLOOD SPECIMEN / Unknown Venipuncture / Unknown 04/28/2025 8:45 PM [facility] 04/28/2025 8:53 PM [facility] us Kadeem Duffy MD HEMATOLOGY ORDERABLES Fi nal Result [facility] CLIA # [id number] [address] [place] [phone] * (ABNORMAL) COMPREHENSIVE METABOLIC PANEL (04/28/2025 8:45 PM [facility]) SODIUM 134(L) 136 - 145 mmol/L 04/28/2025 9:14 PM [facility] POTASSIUM 3.8 3.5 - 5.1 mmol/L 04/28/2025 9:14 PM [facility] CHLORIDE 96(L) 98 - 107 mmol/L 04/28/2025 9:14 PM [facility] CO2 25 22 - 29 mmol/L 04/28/2025 9:14 PM [facility] CALCIUM 9.7 8.6 - 10.0 mg/dL 04/28/2025 9:14 PM [facility] BUN 16 6 - 20 mg/dL 04/28/2025 9:14 PM [facility] CREATININE 1.27(H) 0.67 - 1.17 mg/dL 04/28/2025 9:14 PM [facility] GLUCOSE 110(H) 74 - 99 mg/dL 04/28/2025 9:14 PM [facility] TOTAL PROTEIN 7.9 6.6 - 8.7 g/dL 04/28/2025 9:14 PM [facility] ALBUMIN 4.3 3.5 - 5.2 g/dL 04/28/2025 9:14 PM [facility] BILIRUBIN TOTAL 0.5 0.0 - 1.2 mg/dL 04/28/2025 9:14 PM [facility] ALKALINE PHOSPHATASE 76 40 - 129 U/L 04/28/2025 9:14 PM [facility] AST 39 0 - 50 U/L 04/28/2025 9:14 PM [facility] ALT 23 0 - 50 U/L 04/28/2025 9:14 PM [facility] GFR >60 >=60 mL/min/1.7 3 sq meter 04/28/2025 9:14 PM [facility] Comment:eGFR calculated with 2020 CKD-EPI equation. Vegetarian diet, extremely high or low muscle mass, and may affect results. Cystatin C with Glomerular Filtration Rate is a suitable alternative for these patients. ANION GAP 13 5 - 20 mmol/L 04/28/2025 9:14 PM [facility] Blood BLOOD SPECIMEN / Unknown Venipuncture / Unknown 04/28/2025 8:45 PM [facility] 04/28/2025 8:53 PM [facility] us Kadeem Duffy MD CHEMISTRY ORDERABLES Fin al Result [facility] CLIA # [id number] [address] [place], [place] [id number] from Last 3 Months Insurance [id number]
[2025-06-17 11:09] VITALS: BP 121/83; PULSE 83; RESP 16; TEMP 36.4; O2SAT 97; BMI 25.8
--- NOTE | 2025-06-17 11:14 | W.ED.EXTPRO ---
HPI - Extremity Problem General: Chief complaint: Extremity Injury, Lower Stated complaint: lt ankle inj Time Seen by Provider: 06/17/25 11:09 Source: patient Mode of arrival: ambulatory Limitations: no limitations History of Present Illness: Patient is a 24-year-old male presents emergency department for injuring his left ankle. 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 He presents with prominent swelling to the left lateral malleolus but also states that the pain is to the medial malleolus and also tracks up the medial sneed. He has no pain in his knee. Has not been able to put any weight on it secondary to the pain. No previous fractures or injuries of that foot. Denies any distal neurovascular symptoms at this time. MD Complaint: extremity pain and joint pain Onset (ago): minute(s) Pain Consistency: constant Location: left and lower extremity (lower leg/ankle) Associated symptoms: Deny chest pain, fever(s) or rash Related Data Home Medications ?Medication ?Instructions ?Recorded ?Confirmed cider 2 tab PO DAILY 04/26/25 04/26/25 slttsfq-Bf-hrfigcdubcnbxdhe-tea 500 mg-100 mcg-300 mg-60 mg tab (Apple Cider Vinegar Plus) vyikcvvioj-YM-nvitvklbvrqgx 12.5 30 ml PO QID PRN Cold Symptoms 04/26/25 04/26/25 mg-30 mg-1,000 mg/30 mL oral liquid ibuprofen 200 mg tablet (Advil) 400 mg PO Q6H PRN Fever Or Pain 04/26/25 04/26/25 Previous Rx's ?Medication ?Instructions ?Recorded ondansetron 8 mg disintegrating 8 mg PO Q6H #14 tabs 04/26/25 tablet Allergies Allergy/AdvReac Type Severity Reaction Status Date / Time No Known Allergies Allergy Verified 04/26/25 14:10 Review of Systems General: Reports: 10 or more systems reviewed and unremarkable except in HPI and below Const: Denies: fever(s) or chills Card: Denies: chest pain Resp: Denies: dyspnea or productive cough GI: Denies: abdominal pain, nausea, vomiting or diarrhea : Denies: flank pain Musc: Reports: extremity pain, joint pain, joint swelling and limited range of motion; Denies: neck pain, back pain, extremity swelling, joint redness, joint warmth or muscle weakness Skin/Breast: Denies: rash Neuro: Denies: headache(s), numbness in extremities or weakness in extremities PFSH ED PFSH: Social History Smoking and tobacco/nicotine status: never used tobacco/nicotine Alcohol intake: never Substance/Drug Use: never Adopted: No Physical Exam Const: COMMON NORMALS: no acute distress, patient oriented x3, no limitations, healthy appearing, alert and well nourished HENMT: COMMON NORMALS: normocephalic and atraumatic HEAD & SCALP: normocephalic and atraumatic Extremity: COMMON NORMALS: full ROM and capillary refill normal NARRATIVE EXTREMITY EXAM: Prominent swelling of left lateral malleolus with associated tender to palpation. No bruising. Tender palpation to the medial malleolus with minimal edema as well. Endorsing tenderness to palpation along the left medial lower leg. No tenderness to palpation to the left proximal fibula. Pulses are palpable, sensations intact distally. Limited range of motion at the ankle secondary to the pain and swelling. 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 Large amount of lateral malleolar swelling on exam as this was an inversion injury, however ankle is stable with exam. No proximal fibular tenderness. The x-ray showing no obvious bony abnormality with him noting that the pain was extending somewhat proximally there is still mild to moderate concern of possible syndesmotic injury of a high ankle sprain. For this he will be given crutches made nonweightbearing with [place] wrap till he can follow-up with orthopedics. Otherwise discussed other conservative management at home. He agrees to this plan. Lab Data Radiology Impressions Ankle X-Ray 06/17/25 10:44 IMPRESSION: Lateral soft tissue swelling. No acute fracture lucency. All radiology interpretation(s) finalized by discharge Discharge Plan Discharge Patient Disposition: Home Clinical Impression: High ankle sprain of left lower extremity Condition: Stable Prescriptions: No Action ibuprofen [Advil] 200 mg Tablet 400 mg PO Q6H PRN (Reason: Fever Or Pain) Night Time Cold-Flu 12.5-30-1,000 mg/30 mL Liquid 30 ml PO QID PRN (Reason: Cold Symptoms) Apple Cider Vinegar Plus [phone] qp-neh-jf-mg Tablet 2 tab PO DAILY ondansetron 8 mg tablet,disintegrating 8 mg PO Q6H Qty: 14 0RF Rx Instructions: Take 1/2-1 tab every 6 hours as needed for nausea and vomiting Discharge Orders: Discharge ED (Routine); Ordered 06/17/25 Ordered By: Mahendra Vargas Patient Instructions: Patient Portal & Tom Instructions Activity Restrictions/Additional Instructions: Discharge Instructions: High Ankle Sprain (Syndesmotic Injury) DISCHARGE INSTRUCTIONS High Ankle Sprain (Syndesmotic Injury) - Left Ankle Your Diagnosis: You have been diagnosed with a possible high ankle sprain of your left ankle. This is also called a syndesmotic injury. X-rays showed no broken bones. This type of sprain affects the ligaments that connect your sneed bones (tibia and fibula) just above the ankle joint. What to Expect: High ankle sprains typically take longer to heal than regular ankle sprains. Recovery can take several weeks to months depending on the severity. You may experience pain, swelling, and difficulty with walking, especially when pushing off your foot. Home Care Instructions: Rest and Activity: - Use your crutches to avoid putting full weight on your left ankle until your pain improves - You may gradually increase weight bearing as tolerated based on your pain level - Avoid activities that cause pain, especially twisting motions and pushing off movements - Elevate your ankle above the level of your heart when sitting or lying down to reduce swelling Compression: - Keep the [place] wrap on your ankle at all times except when bathing - The wrap should be snug but not too tight - loosen it if you notice numbness, tingling, increased pain, or color changes in your toes - Rewrap the bandage if it becomes loose Ice: - Apply ice to your ankle for 20 minutes at a time, 3-4 times daily - Always place a thin towel between the ice and your skin to prevent cold injury - Continue icing for the first 48-72 hours or longer if swelling persists Pain Management: - You may take tgif-eov-zgafmms pain medications such as ibuprofen (Advil, Motrin) 400-600mg every 6-8 hours with food, or acetaminophen (Tylenol) 650-1000mg every 6 hours as needed for pain - Do not exceed the maximum daily dose listed on the medication bottle Warning Signs - Seek Immediate Medical Attention If You Experience: - Severe, worsening pain not controlled by medication - Numbness or tingling in your foot or toes - Cold, pale, or blue toes - Inability to move your toes - Fever or signs of infection (increased redness, warmth, red streaks, or drainage) - Chest pain or difficulty breathing Follow-Up Care: - You must follow up with an record center specialist within 1-2 weeks - The orthopedic doctor will determine if you need additional imaging (such as MRI) or specialized treatment - Some high ankle sprains may require a walking boot or other immobilization - Do not delay this appointment - early specialist evaluation is important for proper healing Important Notes: - Do not drive while using crutches or taking narcotic pain medications - Keep your follow-up appointment even if you feel better - Physical therapy may be recommended by the record center specialist to help restore strength and prevent future injury If you have any questions or concerns before your orthopedic appointment, please call your primary care provider or return to the emergency department. Print Language: Beninese Coding Level of Care Code ED Media Production Support Manager for Lazara Lee
[2025-06-17 12:42] VITALS: BP 122/81; PULSE 69; O2SAT 98
== END 2025-06-17 12:43 | disposition home or self-care (01) ==
PROVIDERS: Emergency Provider Physician Assistant
DX: S93.492A Sprain of other ligament of left ankle, initial encounter (principal); X58.XXXA Exposure to other specified factors, initial encounter
CPT/HCPCS: 73610; 99283; E0114; J9999